=== PATIENT | female | born 1995 | race African-American/Black ===

== ENCOUNTER 2021-08-19 17:43 | Emergency (ER) | payer OTHER ==
[2021-08-19] MEDS ORDERED: Ibuprofen 800 MG TAB ONE (18:46)
[2021-08-20 13:27] LABS: SARS-CoV-2 PCR by NAA Not Detected (NotDetected)
== END 2021-08-19 18:58 | disposition home or self-care (01) ==
LOC: ERS 17:43
DX: R05.9 Cough, unspecified (principal); M79.10 Myalgia, unspecified site; Z20.822 Contact with and (suspected) exposure to COVID-19
CPT/HCPCS: 87804; 99284; U0003; U0005

== ENCOUNTER 2021-08-27 01:25 | Emergency (ER) | payer OTHER | END 2021-08-27 02:18 | disposition home or self-care (01) | LOC: ERS 01:25 | DX: R42 Dizziness and giddiness (principal); R50.9 Fever, unspecified; R11.2 Nausea with vomiting, unspecified; R05.9 Cough, unspecified; R51.9 Headache, unspecified; M79.89 Other specified soft tissue disorders; Z20.822 Contact with and (suspected) exposure to COVID-19 | CPT/HCPCS: 99283 ==

== ENCOUNTER 2023-04-30 03:38 | Emergency (ER) | payer OTHER, SELFPAY ==
[2023-04-30] MEDS ORDERED: Ketorolac Tromethamine 30 MG/ML VIAL ONE (04:03)
== END 2023-04-30 04:12 | disposition home or self-care (01) ==
LOC: ERS 03:38
DX: K04.7 Periapical abscess without sinus (principal)
CPT/HCPCS: 96372; 99282; J1885

== ENCOUNTER 2023-05-23 04:56 | Emergency (ER) | payer SELFPAY ==
[2023-05-23] MEDS ORDERED: Ketorolac Tromethamine 30 MG/ML VIAL ONE (05:10)
== END 2023-05-23 05:34 | disposition home or self-care (01) ==
LOC: ERS 04:56
DX: K02.9 Dental caries, unspecified (principal)
CPT/HCPCS: 96372; 99282; J1885

== ENCOUNTER 2023-06-08 03:39 | Emergency (ER) | payer SELFPAY ==
[2023-06-08] MEDS ORDERED: Ketorolac Tromethamine 30 MG/ML VIAL ONE (06:05)
== END 2023-06-08 06:24 | disposition home or self-care (01) ==
LOC: ERS 03:39
DX: S63.501A Unspecified sprain of right wrist, initial encounter (principal); W18.30XA Fall on same level, unspecified, initial encounter
CPT/HCPCS: 96372; J1885

== ENCOUNTER 2024-01-09 08:19 | Emergency (ER) | payer SELFPAY ==
[2024-01-09] MEDS ORDERED: Acetaminophen 500 MG TAB ONE (08:49)
[2024-01-09] MEDS ORDERED: Ibuprofen 800 MG TAB ONE (08:49)
[2024-01-09] MEDS ORDERED: Metoclopramide HCl 10 MG (2 mL) VIAL ONE (11:07)
[2024-01-09] MEDS ORDERED: diphenhydrAMINE 50 MG/ML VIAL ONE (11:07)
== END 2024-01-09 12:30 | disposition home or self-care (01) ==
LOC: ERS 08:19
DX: G43.909 Migraine, unspecified, not intractable, without status migrainosus (principal); R50.9 Fever, unspecified
CPT/HCPCS: 96374; 96375; J1200; J2765